=== PATIENT | male | born 1955 | race Caucasian/White ===

== ENCOUNTER 2016-04-17 13:00 | Inpatient (IN) | payer OTHER ==
[~2016-04-17] VITALS: Ht 182.9 cm; Wt 102.1 kg
[~2016-04-17 13:00] MED LIST: NKM
[2016-05-11 06:32] VITALS: BP 132/87
[2016-05-11] MEDS ORDERED: Surgicel 4in x 8in TOPIC ONE (06:48)
[2016-05-11] MEDS ORDERED: Bacitracin 50000 Units Vial ONE (06:48)
[2016-05-11] MEDS ORDERED: ceFAZolin 2gm/50ml Premix 50 ML IVPB ONE (07:00)
[2016-05-29] VITALS (10 sets, daily range): BP systolic 113–147; BP diastolic 61–90
[2016-05-29] MEDS ORDERED: ceFAZolin sod 2 GM in D5W 110 ML IVP ONE (06:00)
[2016-05-29] MEDS ORDERED: Thrombin 5000 units TOPIC ONE (10:02)
[2016-05-29] MEDS ORDERED: Vancomycin 1gm inj IVPB ONE (10:03)
[2016-05-29] MEDS ORDERED: Bupivacaine w/Epi 0.5% 30ml Vial INJ ONE (10:03)
[2016-05-29] MEDS ORDERED: Surgicel 4in x 8in TOPIC ONE (10:03)
[2016-05-29] MEDS ORDERED: Bacitracin 50000 Units Vial ONE (10:04)
[2016-05-29] MEDS ORDERED: Zemuron 50mg/5ml Inj IV ONE ×2 (12:00)
[2016-05-29] MEDS ORDERED: Propofol 10mg/ml 100ml btl IV ONE (12:00)
[2016-05-29] MEDS ORDERED: Succinylcholine 20mg/ml 10ml vial ONE (12:00)
[2016-05-29] MEDS ORDERED: Dexamethasone 4mg/ml vial ONE (12:00)
[2016-05-29] MEDS ORDERED: LR 1000ml ONE (12:00)
[2016-05-29] MEDS ORDERED: NS Irrig 1000ml ONE (12:00)
[2016-05-29] MEDS ORDERED: Ketorolac 30mg Inj ONE (12:00)
[2016-05-29] MEDS ORDERED: Glycopyrrolate 0.2mg/ml 1ml Vial ONE (12:00)
[2016-05-29] MEDS ORDERED: Midazolam 2mg/2ml Inj ONE (12:00)
[2016-05-29] MEDS ORDERED: fentaNYL 250mcg/5ml ONE (12:00)
[2016-05-29] MEDS ORDERED: Sterile Water Irrig 1000ml IRRIG ONE (12:00)
[2016-05-29] MEDS ORDERED: Neostigmine 1mg/ml 10ml Inj ONE (12:00)
--- NOTE | 2016-05-29 12:23 | Pre-Procedure Note/Attestation ---
Pre-Procedure Note/Attestation Complete Prior to Procedure Planned Procedure: not applicable Procedure Narrative: C45 Artificial disc replacement vs anterior cervical discectomy and fusion C56 Artificial disc replacement vs anterior cervical discectomy and fusion C67 Artificial disc replacement vs anterior cervical discectomy and fusion Indications for Procedure Pre-Operative Diagnosis: Herniations C45,56,67 Attestation I attest that I discussed the nature of the procedure; its benefits; risks and complications; and alternatives (and the risks and benefits of such alternatives ), prior to the procedure, with the patient (or the patient's legal insurance follow up representative). I attest that, if there was a reasonable possibility of needing a blood transfusion, the patient (or the patient's legal insurance follow up representative) was given the [place] Department [employer] standardized written summary, pursuant to the [place] Blood Safety Act ([place] Health and Safety Code # 1645, as amended). I attest that I re-evaluated the patient just prior to the surgery and that there has been no change in the patient's H&P, except as documented below: MAYNOR PEREZ May 29, 2016 12:23
--- NOTE | 2016-05-29 12:24 | Brief Operative Note ---
Immediate Post Operative Note Operative Note Chief Complaint: neck pain and right more than left sided arm pain Pre-op Diagnosis: Herniations C45,56,67 Procedure: C45 Artificial disc replacement C56 anterior cervical discectomy and fusion C67 anterior cervical discectomy and fusion Post-op Diagnosis: same as pre-op Surgeon: Trey Customer Development Representative: Meño Anesthesiologist: Tez Anesthesia: general Specimen: none Complications: none Condition: stable Estimated Blood Loss: minimal Drains: none Implant(s) used?: Yes - Nuvasive interlock C s5 and 6, prodisc c sz 5 MAYNOR PEREZ May 29, 2016 12:24
[2016-05-29] MEDS ORDERED: Milk of Magnesia 30ml Ud ORAL PRN (12:30)
[2016-05-29] MEDS ORDERED: Metoclopramide 10mg/2ml Inj IVP PRN (12:30)
[2016-05-29] MEDS ORDERED: LR 1000ml 1,000 ML IVLG SCH (13:32)
--- NOTE | 2016-05-29 13:32 | Anethesia Preoperative Eval ---
Anesthesia Pre-op PMH/ROS General Date of Evaluation: May 29, 2016 Time of Evaluation: 11:20 Anesthesiologist: Lucero ASA Score: ASA 2 Mallampati Score Class I : Soft palate, uvula, fauces, pillars visible Class II: Soft palate, uvula, fauces visible Class III: Soft palate, base of uvula visible Class IV: Only hard plate visible Mallampati Classification: Class II Surgeon: Trey Diagnosis: Cervical radiculopathy Surgical Procedure: ACDF C4-5 5-6 6-7 Anesthesia History: none Family History: no anesthesia problems Allergies: Coded Allergies: NO KNOWN ALLERGIES (Unverified Allergy, Unknown, 09/14/14) Medications: see eMAR Past Medical History Cardiovascular: Reports: HTN - mild, Denies: CAD, AR, arrhythmia, other, valve dz Pulmonary: Reports: SUYAPA, Denies: COPD, asthma, other Gastrointestinal/Genitourinary: Reports: GERD, Denies: CRI, ESRD, other Neurologic/Psychiatric: Reports: other - chronic pain, Denies: CVA, TIA, dementia, depression/anxiety Endocrine: Denies: DM, hypothyroidism, other, steroids HEENT: Reports: cataract (L), cataract (R) - s/p Sx Hematology/Immune: Denies: DVT, anemia, bleeding disorder, other Musculoskeletal/Integumentary: Reports: DJD, Denies: DDD, OA, RA, edema, other Other: obesity PMH Narrative: as above PSxH Narrative: Lumbar spine bilateral cataract retinal Anesthesia Pre-op Phys. Exam Physician Exam Last Vital Signs Date Time Temp Pulse Resp B/P Pulse Ox O2 Delivery O2 Flow Rate FiO2 05/29/16 10:51 97.8 72 18 147/88 100 Room Air Constitutional: NAD Neurologic: CN 2-12 intact Cardiovascular: RRR, no M/R/G Respiratory: CTA Gastrointestinal: S/NT/ND Airway Exam Mallampati Score: Class II MO: full Neck: stiff ROM: limited Teeth: missing Dentures: no lower, no upper Anesthesia Pre-op A/P Labs see chart Studies Pre-op Studies: EKG - NSR, CXR - WNL Risk Assessment & Plan Assessment: ASA 3 Plan: GA with ETT neuromonitoring Status Change Before Surgery: No Pre-Antibiotics Drug: Ancef 2gr. Given Within 1 Hr of Incision: Yes Time Given: 12:40 LUAN DO M.D. May 29, 2016 13:32
[2016-05-29] MEDS ORDERED: Midazolam 2mg/2ml Inj IVP PRN (13:45)
[2016-05-29] MEDS ORDERED: Meperidine 25mg/ml Inj IV PRN (13:45)
[2016-05-29] MEDS ORDERED: fentaNYL 100 mcg/2 mL IV PRN (13:45)
[2016-05-29] MEDS ORDERED: DiphenhydrAMINE 50mg/ml Inj IVP PRN (13:45)
--- NOTE | 2016-05-29 15:58 | Immediate Post-Op Evaluation ---
Immediate Post-Op Evalulation Immediate Post-Op Evalulation Procedure: ACDF C4-C5 C5-6 C6-C7 Date of Evaluation: May 29, 2016 Time of Evaluation: 15:55 IV Fluids: 1200 Blood Products: none Estimated Blood Loss: 300 Urinary Output: 100 Blood Pressure Systolic: 128 Blood Pressure Diastolic: 71 Pulse Rate: 87 Respiratory Rate: 20 O2 Sat by Pulse Oximetry: 99 Temperature (Fahrenheit): 97,3 Pain Score (1-10): 1 Nausea: No Vomiting: No Complications none Patient Status: patent, extubated Hydration Status: adequate LUAN DO M.D. May 29, 2016 15:58
[2016-05-29] MEDS: Hydromorphone 0.5mg/0.5ml inj IVP PRN ×2 (16:11→16:37)
--- NOTE | 2016-05-29 16:33 | Diagnostic Imaging Report ---
Indication: Neck Pain Findings: 3 views of the cervical spine were obtained. Localization images followed by hardware placement within the cervical spine noted. C4-5 prosthetic disc and anterior fusion screws at C5-6 and C6-7 noted. Impression: Intraoperative imaging
[2016-05-29] MEDS ORDERED: HYDROmorphone 1mg/ml Carpuject SUBQ PRN (18:00)
[2016-05-29] MEDS ORDERED: Norco 7.5mg/325mg tab ORAL PRN ×2 (18:00)
[2016-05-29] MEDS ORDERED: HYDROmorphone 1mg/ml Carpuject IVP PRN (18:00)
[2016-05-29] MEDS ORDERED: Norco 5mg/325mg tab ORAL PRN (18:00)
[2016-05-29] MEDS: NS w/KCl 20mEq 1,000 ML IV SCH (18:30)
[2016-05-29] MEDS: Dexamethasone 4mg/ml vial IVP SCH (19:12)
--- NOTE | 2016-05-29 21:49 | Pre-op HX & Phy Repo 2 SIG ---
DATE OF ADMISSION: 05/29/2016 HISTORY OF PRESENT ILLNESS: The patient has a history of neck pain and right more than left-sided arm pain. We have reviewed with him today in the preoperative area his MRI and imaging and we felt that as a result of severe herniations at cervical 4-5, 5-6, and 6-7, he is indeed a candidate for definitive management at these levels. I felt that at the cervical 6-7 disk space, for several reasons he may not be the best candidate for the arthroplasty. These are secondary to the decreased length of the neck itself, which would lead to increased retraction, possible damage to the recurrent laryngeal nerve as a result of exposure from an arthroplasty standpoint and the fact that disc height is more collapsed. As such, we have discussed with Mr. Schulz the likelihood that either cervical 4-5 or 5-6 would be the best candidate for the arthroplasty itself. This will be determined intraoperatively whether cervical 4-5, 5-6, or again 6-7 would be the best candidate. He understood this. The consent was updated and all questions were answered prior to surgery. Celestine Yang M.D. DR: ERNESTO JOB#: [id number] CC:
[2016-05-29] MEDS: ceFAZolin sod 1 GM in D5W 55 ML IV SCH (21:56)
[2016-05-30 00:55] VITALS: BP 136/87
--- NOTE | 2016-05-30 01:19 | Operative Note - Dictated ---
DATE OF OPERATION: 05/29/2016 SURGEON: Celestine Yang M.D., Orthopedic spine surgeon. LAMINATION OPERATOR: Prashant Wilder M.D., Orthopedic surgeon. PREOPERATIVE DIAGNOSES: 1. Intractable neck pain. 2. Radiculopathy. 3. Herniation, C4-5, C5-6, and C6-7. 4. Neural foraminal stenosis, C4-5, C5-6, and C6-7. POSTOPERATIVE DIAGNOSES: 1. Intractable neck pain. 2. Radiculopathy. 3. Herniation, C4-5, C5-6, and C6-7. 4. Neural foraminal stenosis, C4-5, C5-6, and C6-7. PROCEDURE PERFORMED: 1. Anterior cervical discectomy and artificial disc replacement of C4-5 using a Synthes ProDisc-C 5 height. 2. Anterior cervical discectomy and fusion at C5-6 and C6-7 using NuVasive Interlock PEEK cages, one size 5, one size 6, with 13 mm screws x6. 3. Partial vertebrectomy C6/7 3. Use of intraoperative microscope. 4. Motor evoked potential monitoring. 5. Somatosensory evoked potential monitoring. 6. Supervision and interpretation of fluoroscopy. COMPLICATIONS: None. ANESTHESIA: General. ANESTHESIOLOGIST: Toni Carty M.D. ESTIMATED BLOOD LOSS: Less than 100 mL. INDICATIONS FOR SURGERY: This patient is a 61-year-old male who has a history of intractable neck pain following an injury as documented in my clinic and hospital charts. As a result of these pains sustained following the injury, we have tried a course of conservative management, and despite this, he remained with considerable neck pain, which was persisted. He has MRI demonstrations of neural foraminal encroachments and disc herniations of C4-5, C5-6, and C6-7. We had a long discussion with Naveen regarding the risks and benefits of surgery. Our discussion included but was not limited to nonoperative management, chiropractic management, another epidural steroid injection as well definitive management in the form of surgery. We recommended anterior cervical discectomy and artificial disc replacement of C4-5 using a Synthes ProDisc-C 5 height and anterior cervical discectomy and fusion at C5-6 and C6-7 using NuVasive Interlock PEEK cages, one size 5, one size 6, with 13 mm screws x6 as final definitive management. We reviewed the risks and benefits of surgery with the patient. Our discussion included a comprehensive review of the clinical issues and the nature of the clinical decision. We reviewed the alternatives, including doing nothing. The patient elected to proceed accordingly with anterior cervical discectomy and artificial disc replacement of C4-5 using a Synthes ProDisc-C 5 height and anterior cervical discectomy and fusion at C5-6 and C6-7 using NuVasive Interlock PEEK cages, one size 5, one size 6, with 13 mm screws x6. We had a long discussion regarding the risks, alternatives and benefits of surgery. Our description of the risks included a discussion in person as well as a signed consent which detailed all pertinent risks from the procedure itself. Briefly, our discussion included but was not limited to infection, bleeding, pseudarthrosis, spinal cord injury, neurovascular injury, dural tear, CSF leak, neuropathy, paralysis, permanent weakness/drop foot/drop arm, paresthesias, blindness, palsy and weakness. The patient understood there may be a need for a revision surgery or additional procedures. Approach-related complications including dysphonia, dysphagia, blindness, permanent vocal cord and neural injury, hematoma, swallowing and breathing difficulty. Medical complications were reviewed including liver, kidney, shock, cardiopulmonary failure, anesthesia complications including , swelling, damage to the musculature, larynx/voice injury or loss, esophagus/throat, trachea, blood vessels and muscles/muscular sprain and lungs/pneumothorax during this surgical procedure; injury to deeper structures may be temporary or permanent. After this review of risks, the patient understood these and elected to proceed. A written and verbal consent was given. We discussed the pros and cons of all the alternatives. We discussed the uncertainties associated with the decision. Afterwards I assessed the patient's understanding and explored their preferences. All questions were answered and no guarantees were given. Medical clearance was obtained prior to surgery. INTRAOPERATIVE FINDINGS: A broad based disc herniations which was found posterior to the tear at C6-7 causing a considerable amount of neural foraminal stenosis with significant encroachment on the neural foramina and spinal cord. A broad based disc herniations which was found posterior to the tear at C4-5 causing a considerable amount of neural foraminal stenosis with significant encroachment on the neural foramina and spinal cord. A broad based disc herniations which was found posterior to the tear at C5-6 causing a considerable amount of neural foraminal stenosis with significant encroachment on the neural foramina and spinal cord. DESCRIPTION OF PROCEDURE: Under the benefit of general endotracheal anesthesia and with the assistance of the entire operative team, the patient was moved from the gurney onto the operative table in the supine position. The head was secured and carefully positioned appropriately. Bilateral arms were secured with GelPads and foam and all bony prominences were padded. For the bilateral lower extremities SCD and NISHANT hose were placed for DVT prophylaxis. A surgical timeout was called which corroborated our planned procedures of anterior cervical discectomy and artificial disc replacement of C4-5 using a Synthes ProDisc-C 5 height and anterior cervical discectomy and fusion at C5-6 and C6-7 using NuVasive Interlock PEEK cages, one size 5, one size 6, with 13 mm screws x6. Preoperative antibiotics were administered within 30 minutes of the incision for antibiotic prophylaxis. Using lateral fluoroscopic radiography, the operative levels were delineated. Next the wound was prepped and draped with Chlorhexidine and sterile drapes. An incision was based on lateral fluoroscopy and we centered our incision at the cervical vertebral bodies of C4, C5, and C6 and next using a standard Lazo-Yeung anterior based approach the incision was taken down through the skin and subcutaneous tissues until the vertebral bodies and their corresponding disc spaces were visualized. A needle was placed into the interspace to confirm placement of the operative interspace and we performed the remainder of procedure under microscopic visualization. Next, using a bipolar and Bovie cautery to ensure meticulous hemostasis, the longus colli was mobilized bilaterally and retractors were placed deep to the longus colli bilaterally to address retraction. Next we turned our attention to the radical anterior discectomy. This was initially performed at C6-7. First by using a 15 blade scalpel followed by narrow pituitaries and a Microsect 5-B curette was used to denude the endplate of all cartilaginous tissue. Next using a Atigeo Thompson AM8 drillbit the partial vertebrectomy was performed in a [id number] and layer by layer fashion, and ultimately the posterior uncinate joints bilaterally and posterior osteophytic lips and margins causing central and lateral impingement were carefully denuded until visualization of the posterior longitudinal ligament was possible. An endplate preparation was performed in the exact same fashion using an intervertebral wind technician, sequential distraction was obtained throughout the disc space. We saw a tear/rent in the PLL and this was carefully mobilized and dissected using a Microsect 1-B curet until we visualized a broad-based disc herniation with compression of the spinal cord as well as neural foramina, which was right more than left sided. This neural foraminal compression was carefully resected using a Kerrison-1 and Kerrison-2 rongeurs until complete decompression of the spinal cord was visualized and complete decompression of the neural foramina and nerve root therein as well as the axilla and lateral margin of the nerve root was visualized and subsequently completely decompressed. The family was notified at one hour intervals throughout the procedure to provide for consistent updates. Next we turned our attention to the radical anterior discectomy. This was initially performed at C5-6. First by using a 15 blade scalpel followed by narrow pituitaries and a Microsect 5-B curette was used to denude the endplate of all cartilaginous tissue. Next, using a Midas Thompson AM8 drillbit, the vertebral endplates were removed of all cartilaginous tissue in a layer by layer fashion, and ultimately the posterior uncinate joints bilaterally and posterior osteophytic lips and margins causing central and lateral impingement were carefully denuded until visualization of the posterior longitudinal ligament was possible. An endplate preparation was performed in the exact same fashion using an intervertebral wind technician, sequential distraction was obtained throughout the disc space. We saw a tear/rent in the PLL and this was carefully mobilized and dissected using a Microsect 1-B curet until we visualized a broad-based disc herniation with compression of the spinal cord as well as neural foramina, which was right more than left sided. This neural foraminal compression was carefully resected using a Kerrison-1 and Kerrison-2 rongeurs until complete decompression of the spinal cord was visualized and complete decompression of the neural foramina and nerve root therein as well as the axilla and lateral margin of the nerve root was visualized and subsequently completely decompressed. The family was notified at one hour intervals throughout the procedure to provide for consistent updates. Next we turned our attention to the radical anterior discectomy. This was initially performed at C4-5. First by using a 15 blade scalpel followed by narrow pituitaries and a Microsect 5-B curette was used to denude the endplate of all cartilaginous tissue. Next, using a Midas Thompson AM8 drillbit, the vertebral endplates were removed of all cartilaginous tissue in a layer by layer fashion, and ultimately the posterior uncinate joints bilaterally and posterior osteophytic lips and margins causing central and lateral impingement were carefully denuded until visualization of the posterior longitudinal ligament was possible. An endplate preparation was performed in the exact same fashion using an intervertebral wind technician, sequential distraction was obtained throughout the disc space. We saw a tear/rent in the PLL and this was carefully mobilized and dissected using a Microsect 1-B curet until we visualized a broad-based disc herniation with compression of the spinal cord as well as neural foramina, which was right more than left sided. This neural foraminal compression was carefully resected using a Kerrison-1 and Kerrison-2 rongeurs until complete decompression of the spinal cord was visualized and complete decompression of the neural foramina and nerve root therein as well as the axilla and lateral margin of the nerve root was visualized and subsequently completely decompressed. The family was notified at one hour intervals throughout the procedure to provide for consistent updates. We next turned our attention towards trialing our implant within the disc space. We initially tried size 5 and the ProDisc Cervical spacer fit well in regards to depth and width. This implant was opened and prepared. Next under direct visualization I confirmed excellent fit in respect to the anterior and posterior vertebral bodies, the uncinate joints and in regards to toggle. Once satisfied with this placement on serial AP and lateral fluoroscopy I turned my attention towards cutting our scotty. These were cut in the bones using a reciprocating drill and afterwards all free fragments of bone were irrigated. Next FloSeal was placed into the interspace and the implant was inserted using fluoroscopic guidance. Next the Synthes ProDisc-C size 5 ADR was then carefully advanced and secured into the intervertebral space under direct visualization and with supervision of AP and lateral fluoroscopic views. We next turned our attention towards trialing our implant within the disc space at C6-7. We initially tried size 5 and afterwards size 6 trial from the [employer] system, and we felt the size 5 was more appropriate appropriate under AP and lateral fluoroscopy as well as in terms of its height, depth, width and lack of toggle. The PEEK polyetheretherketone interbody cages were then both packed with allograft bone from [employer] and local autograft bone matrix. Next these were then carefully advanced and secured into their intervertebral spaces under direct visualization and with supervision of AP and lateral fluoroscopic views. We next turned our attention towards plating. Plating was performed with NuVasive interlock-C plating system. A total of 3 screws, size 13 in length were inserted and confirmed under AP and lateral fluoroscopy and confirmed to be in excellent position. We next turned our attention towards trialing our implant within the disc space at C5-6. We initially tried size 5 and afterwards size 6 trial from the NuVasive system, and we felt the size 6 was more appropriate appropriate under AP and lateral fluoroscopy as well as in terms of its height, depth, width and lack of toggle. The PEEK polyetheretherketone interbody cages were then both packed with allograft bone from [employer] and local autograft bone matrix. Next these were then carefully advanced and secured into their intervertebral spaces under direct visualization and with supervision of AP and lateral fluoroscopic views. We next turned our attention towards plating. Plating was performed with NuVasive interlock-C plating system. A total of 3 screws, size 13 in length were inserted and confirmed under AP and lateral fluoroscopy and confirmed to be in excellent position. After a finger sweep we confirmed removal of all sponges. The retractor was removed and we next turned our attention to meticulous hemostasis with FloSeal and bipolar cautery. After the sponge and needle count was again found to be correct with our second count, we next turned our attention to closure. The wound was again copiously irrigated with antibiotic impregnated saline. Closure consisted of 4-0 clear nylon for the platysma, and 6-0 clear nylon for the superficial skin. Final skin closure and dressings consisted of Dermabond. Prior to final closure, a final radiograph was obtained which demonstrated the hardware is intact with excellent position throughout. The patient tolerated the procedure well. The patient was carefully extubated after the conclusion of surgery. We discussed the findings of the surgery with the family upon completion of the case. At this point the patient was transferred to the spine floor for further observation. Celestine Yang M.D. DR: Jose Luis JOB#: [id number] CC: KYRA
[2016-05-30] MEDS: Dexamethasone 4mg/ml vial IVP SCH ×3 (01:33→11:57)
[2016-05-30 04:00] VITALS: BP 136/87
[2016-05-30] MEDS: NS w/KCl 20mEq 1,000 ML IV SCH (05:38)
[2016-05-30] MEDS: ceFAZolin sod 1 GM in D5W 55 ML IV SCH ×2 (05:38→11:57)
[2016-05-30 08:00] VITALS: BP 142/78
[2016-05-30 11:46] VITALS: BP 127/71
[2016-05-30 16:27] VITALS: BP 127/71
--- NOTE | 2016-05-30 16:27 | 48 Hour Post Anesthesia Eval ---
Post Anesthesia Evaluation Procedure: ACDF C4-C5 C5-6 C6-C7 Date of Evaluation: May 30, 2016 Time of Evaluation: 12:00 Blood Pressure Systolic: 127 0: 71 Pulse Rate: 71 Respiratory Rate: 21 Temperature (Fahrenheit): 97.7 O2 Sat by Pulse Oximetry: 98 Airway: patent Nausea: No Vomiting: No Pain Intensity: 2 Hydration Status: adequate Cardiopulmonary Status: at baseline Mental Status/LOC: patient returned to baseline Post-Anesthesia Complications: 0 Follow-up care needed: N/A - further care as per primary team BOB SMITH M.D. May 30, 2016 16:27
--- NOTE | 2016-06-02 10:23 | Discharge Summary ---
Discharge Summary Hospital Course Date of Admission May 29, 2016 at 10:27 Date of Discharge May 30, 2016 at 14:00 Admitting Diagnosis multilevel herniated cervical disc HPI Naveen Schulz, 61 year old male, was admitted on May 29, 2016 at 10:27 for Cervical Herniated Disc,Radiculopathy fro elective surgery. Procedures 05/29/[address] Yang 1. Anterior cervical discectomy and artificial disc replacement of C4-5 using a Synthes ProDisc-C 5 height. 2. Anterior cervical discectomy and fusion at C5-6 and C6-7 using NuVasive Interlock PEEK cages, one size 5, one size 6, with 13 mm screws x6. 3. Partial vertebrectomy C6/7 3. Use of intraoperative microscope. 4. Motor evoked potential monitoring. 5. Somatosensory evoked potential monitoring. 6. Supervision and interpretation of fluoroscopy. Hospital Course s/p elective surgery course of recovery uneventful pain management s/p prophylactic antibiotics s/p IV steroids x 4 doses neurovascular intact pain controlled ambulated freely tolerated diet voided freely dc home f/up with surgeon as outpatient, had analgesics at home DISCHARGE DIAGNOSIS 1. Intractable neck pain. 2. Radiculopathy. 3. Herniation, C4-5, C5-6, and C6-7. 4. Neural foraminal stenosis, C4-5, C5-6, and C6-7. 5. s/p Anterior cervical discectomy and artificial disc replacement of C4-5 6. s/p Anterior cervical discectomy and fusion at C5-6 and C6-7 7. s/p Partial vertebrectomy C6/7 Discharge Condition Upon Discharge: stable Discharge Disposition Patient was discharged to Home (01) Discharge Diagnoses: Discharge Instructions Discharge Instructions Special Instructions I have been assigned to complete a D/C Summary on this account. I was not involved in the patient management Sadia Nguyen NP ([place]) Jun 02, 2016 10:23
== END 2016-05-30 14:00 | disposition home or self-care (01) | DRG 473 ==
LOC: UNDOADMIN 05-11 05:28 → SDSOVERFLO 05-11 05:28 → 3E 05-29 17:00
DX: M50.121 Cervical disc disorder at C4-C5 level with radiculopathy (principal); I10 Essential (primary) hypertension; G47.33 Obstructive sleep apnea (adult) (pediatric); K21.9 Gastro-esophageal reflux disease without esophagitis
CPT/HCPCS: 36415; 72040; 76001; 86850; 86900; 86901; 87081; 94003; 94150; J2250; J2710